=== PATIENT | male | born 1980 | race Caucasian/White ===

== ENCOUNTER 2017-07-16 21:00 | Emergency (ER) | payer MEDICAID ==
[~2017-07-16] VITALS: Ht 167.6 cm; Wt 106.1 kg
[2017-07-16 21:04] VITALS: BP 112/75
--- NOTE | 2017-07-16 22:10 | NUR ---
PT TAKEN TO BED 6
--- NOTE | 2017-07-16 22:11 | NUR ---
37/M CAME IN ED, C/O 11/22 ACHING R EYE PAIN, X4 DAYS WORSENING TODAY. PT DENIES EYE TRAUMA. PT REPORTS SWELLING IN THE AM, WAS RELIEVED BY ICE. NO OBVIOUS ABNORMALITY/SWELLING AT THIS TIME. PT REPORTS BLURRY VISION AND ITCHINESS AT THIS TIME. PT DENIES FEVER, CP, SOB, COUGH, N/V/D; SKIN IS INTACT, PINK/WARM/DRY; AAOX4, PERRL, WITH EVEN AND STEADY GAIT; LUNGS CLEAR BL, BREATHING UNLABORED; HR EVEN AND REGULAR, BL PERIPHERAL PULSES PRESENT; BS ACTIVE X4, NO TENDERNESS TO PALPATION; VSS; PATIENT POSITIONED FOR COMFORT; HOB ELEVATED; BEDRAILS UP X2; BED DOWN.
--- NOTE | 2017-07-16 23:20 | NUR ---
Dr. Ngo evaluating patient at bedside.
[2017-07-17 00:20] VITALS: BP 104/58
--- NOTE | 2017-07-17 00:20 | NUR ---
Patient discharged with v/s stable. Written and verbal after care instructions given and explained. Patient alert, oriented and verbalized understanding of instructions. Ambulatory with steady gait. All questions addressed prior to discharge. ID band removed. Patient advised to follow up with PMD. Rx of TOBRAADEX, OTC ARTIFICIAL TEARS given. Patient educated on indication of medication including possible reaction and side effects. Opportunity to ask questions provided and answered.
== END 2017-07-17 00:20 | disposition home or self-care (01) ==
LOC: MED 21:00
DX: H10.9 Unspecified conjunctivitis (principal)
CPT/HCPCS: 99283

== ENCOUNTER 2018-02-11 19:29 | Emergency (ER) | payer MEDICAID ==
[~2018-02-11] VITALS: Ht 167.6 cm; Wt 81.6 kg
[2018-02-11 20:19] VITALS: BP 138/74
[2018-02-11] MEDS ORDERED: KETOROLAC 60 MG/2 ML VIAL IM ONE (22:10)
[2018-02-11 22:35] VITALS: BP 138/74
== END 2018-02-11 22:35 | disposition home or self-care (01) ==
LOC: MED 19:29
DX: J40 Bronchitis, not specified as acute or chronic (principal); G89.29 Other chronic pain; M54.5 Low back pain
CPT/HCPCS: 71045; 96372; 99283; J1885